=== PATIENT | female | born 1965 | race African-American/Black ===

== ENCOUNTER 2018-02-27 14:09 | Emergency (ER) | payer SELFPAY ==
[~2018-02-27] VITALS: Ht 167.6 cm; Wt 64.0 kg
[2018-02-27] MEDS ORDERED: TETANUS, DIPHTHERIA, PERTUSSIS VAC/PF 0.5ML (>7YR OLD) IM ONE (14:45)
[2018-02-27] MEDS ORDERED: BACITRACIN ZINC OINT UDPKT TOP ONE (14:45)
[2018-02-27] MEDS ORDERED: IBUPROFEN 600MG TABLET PO ONE (14:45)
[2018-02-27 17:00] VITALS: BP 123/79
== END 2018-02-27 17:00 | disposition home or self-care (01) ==
LOC: ER 14:30 → EDSEX 14:30 → ER 17:00
DX: S90.812A Abrasion, left foot, initial encounter (principal); M79.18 Myalgia, other site; V43.62XA Car passenger injured in collision with other type car in traffic accident, initial encounter; Y93.89 Activity, other specified; Y92.89 Other specified places as the place of occurrence of the external cause; Y99.8 Other external cause status
CPT/HCPCS: 73030; 73060; 73610; 90471; 90715; 99283